=== PATIENT | female | born 2005 | race American Indian/Alaskan Native ===

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

== ENCOUNTER 2023-01-12 19:12 | Emergency (ER) | payer MEDICAID ==
[2023-01-12] MEDS ORDERED: Sodium Chloride 0.9% 10 ML Syringe FLUSH PRN (19:17)
[2023-01-12 19:54] LABS: ANION GAP 19.4 mEq/L (7-13)
[2023-01-12 19:57] LABS: AMPHETAMINES,URINE NEGATIVE (NEGATIVE); BARBITURATES,URINE NEGATIVE (NEGATIVE); BENZODIAZEPINE,URINE NEGATIVE (NEGATIVE); MDMA (ECSTASY), URINE NEGATIVE (NEGATIVE); METHADONE,URINE NEGATIVE (NEGATIVE); METHAMPHETAMINES,URINE NEGATIVE (NEGATIVE); OPIATES,URINE NEGATIVE (NEGATIVE); OXYCODONE,URINE NEGATIVE (NEGATIVE); PHENCYCLIDINE,URINE NEGATIVE (NEGATIVE); TCA,URINE NEGATIVE (NEGATIVE)
[2023-01-12] MEDS ORDERED: Sodium Chloride 0.9% 1,000 ML IV ONE ×2 (20:48→21:19)
[2023-01-13 01:26] VITALS: BP 100/63; PULSE 80
[2023-01-19 13:27] LABS: C.TRACHOMATIS BY TMA Positive (Negative); N.GONORRHOEAE BY TMA Positive (Negative)
== END 2023-01-13 01:32 | disposition home or self-care (01) ==
LOC: DL.ED 19:12
DX: F10.10 Alcohol abuse, uncomplicated (principal); S80.812A Abrasion, left lower leg, initial encounter; S80.811A Abrasion, right lower leg, initial encounter; S60.512A Abrasion of left hand, initial encounter; S60.511A Abrasion of right hand, initial encounter; Y90.8 Blood alcohol level of 240 mg/100 ml or more
CPT/HCPCS: 36415; 80053; 80143; 80179; 80305-QW; 80307; 81025; 84484; 85025; 87491; 87563; 87591; 96360; 96361; 99284; 99284-25; J3490; J7030

== ENCOUNTER 2023-03-10 15:58 | Emergency (ER) | payer MEDICAID ==
[2023-03-10 16:15] VITALS: BP 122/89; PULSE 88
[2023-03-10] MEDS ORDERED: Doxycycline Monohydrate 100 MG Cap PO ONE (16:16)
[2023-03-10] MEDS ORDERED: cefTRIAXone 1 GM, Lidocaine 1% 2.1 ML IM ONE ×2 (16:25)
[2023-03-10 16:42] LABS: AMPHETAMINES,URINE POSITIVE (NEGATIVE); BARBITURATES,URINE NEGATIVE (NEGATIVE); BENZODIAZEPINE,URINE NEGATIVE (NEGATIVE); MDMA (ECSTASY), URINE NEGATIVE (NEGATIVE); METHADONE,URINE NEGATIVE (NEGATIVE); METHAMPHETAMINES,URINE POSITIVE (NEGATIVE); OPIATES,URINE NEGATIVE (NEGATIVE); OXYCODONE,URINE NEGATIVE (NEGATIVE); PHENCYCLIDINE,URINE NEGATIVE (NEGATIVE); TCA,URINE NEGATIVE (NEGATIVE)
== END 2023-03-10 17:08 ==
LOC: DL.ED 15:58
DX: L03.115 Cellulitis of right lower limb (principal); F19.10 Other psychoactive substance abuse, uncomplicated; Z86.16 Personal history of COVID-19
CPT/HCPCS: 36415; 80305-QW; 80307; 81025; 87491; 87563; 87591; 96372; 99283; A9270-GY; J0696; J3490